=== PATIENT | male | born 1980 | race African-American/Black ===

== ENCOUNTER 2016-07-17 11:20 | Emergency (ER) | payer OTHER ==
[~2016-07-17] VITALS: Ht 170.2 cm; Wt 68.0 kg
[2016-07-17 13:16] VITALS: BP 149/92
[2016-07-17 13:52] LABS: BILIRUBIN,URINE NEGATIVE (NEG); GLUCOSE,URINE NEGATIVE (NEG); NITRITE,URINE NEGATIVE (NEG); PROTEIN,URINE NEGATIVE (NEG-TRACE); UROBILINOGEN,URINE 0.2 mg/dL (0.2 mg/dL)
--- NOTE | 2016-07-17 13:56 | PHYS DOC ---
Past Medical History Past Medical History: No Pertinent History Past Surgical History: Other Additional Past Surgical Histo: RIGHT INGUINAL hernia repair Alcohol Use: Occasionally Drug Use: Marijuana Adult General Chief Complaint Chief Complaint: SEXUALLY TRANSMITTED DISEASE HPI HPI Patient is a 35 year old male presents emergency department stating that his baby padmini was here last night and tested positive for Trichomonas. Patient states he is here to receive treatment. Patient denies any penile drainage. He denies any urinary frequency urgency or pain with urination. He denies any nausea or vomiting. States he sexually active with one partner. Review of Systems Review of Systems Constitutional: Denies fever or chills [] Eyes: Denies change in visual acuity, redness, or eye pain [] HENT: Denies nasal congestion or sore throat [] Respiratory: Denies cough or shortness of breath [] Cardiovascular: No additional information not addressed in HPI [] GI: Denies abdominal pain, nausea, vomiting, bloody stools or diarrhea [] : Denies dysuria or hematuria [] Musculoskeletal: Denies back pain or joint pain [] Integument: Denies rash or skin lesions [] Neurologic: Denies headache, focal weakness or sensory changes [] Current Medications Current Medications Current Medications Medications (Trade) Dose Ordered Sig/Kayla Start Time Stop Time Status Last Admin Dose Admin Azithromycin (Zithromax) 1,000 mg 1X ONCE 07/17/16 14:00 07/17/16 14:01 DC Ceftriaxone Sodium (Rocephin Im) 250 mg 1X ONCE 07/17/16 14:00 07/17/16 14:01 DC Metronidazole (Flagyl) 2,000 mg 1X ONCE 07/17/16 14:00 07/17/16 14:01 DC Allergies Allergies Allergies Coded Allergies Type Severity Reaction Last Updated Verified No Known Drug Allergies 06/07/13 No Physical Exam Physical Exam Constitutional: Well developed, well nourished, no acute distress, non-toxic appearance. [] HENT: Normocephalic, atraumatic, bilateral external ears normal, oropharynx moist, no oral exudates, nose normal. [] Eyes: PERRLA, EOMI, conjunctiva normal, no discharge. [] Neck: Normal range of motion, no tenderness, supple, no stridor. [] Cardiovascular:Heart rate regular rhythm, no murmur [] Lungs & Thorax: Bilateral breath sounds clear to auscultation [] Skin: Warm, dry, no erythema, no rash. [] Back: No tenderness Extremities: No tenderness, no cyanosis, no clubbing, ROM intact, no edema. [] Neurologic: Alert and oriented X 3, normal motor function, normal sensory function, no focal deficits noted. [] Psychologic: Affect normal, judgement normal, mood normal. [] Current Patient Data Vital Signs Vital Signs Date Time Temp Pulse Resp B/P Pulse Ox O2 Delivery O2 Flow Rate FiO2 07/17/16 13:16 98.1 116 18 96 Room Air 98.1 Lab Values Laboratory Tests Test 07/17/16 13:26 Urine Color Yellow Urine Clarity Clear Urine pH 5.0 Urine Specific [place] 1.010 Urine Protein Negativemg/dL (NEG-TRACE) Urine Glucose (UA) Negativemg/dL (NEG) Urine Ketones (Stick) Negativemg/dL (NEG) Urine Blood Negative (NEG) Urine Nitrite Negative (NEG) Urine Bilirubin Negative (NEG) Urine Urobilinogen Dipstick 0.2mg/dL (0.2 mg/dL) Urine Leukocyte Esterase Negative (NEG) Urine RBC 0/HPF (0-2) Urine WBC Occ/HPF (0-4) Urine Squamous Epithelial Cells Occ/LPF Urine Bacteria 0/HPF (0-FEW) Urine Mucus Slight/LPF EKG EKG [] Radiology/Procedures Radiology/Procedures [] Course & Med Decision Making Course & Med Decision Making Pertinent Labs and Imaging studies reviewed. (See chart for details) Urinalysis was negative for urinary tract infection. Patient was treated for sexual transmitted infections with Rocephin, Zithromax and Flagyl. Patient will be discharged home with recommendations to refrain from sexual intercourse for the next 2 weeks. Also instructed patient to make sure that all of his sexual partners have been treated prior to having sexual intercourse with him. Also explained to patient that refrain from sex reason condoms will prevent sexually transmitted infections for being shared. She'll be discharged home in stable condition signs symptoms to return back to emergency department as been provided. [] Dragon Disclaimer Dragon Disclaimer This electronic medical record was generated, in whole or in part, using a voice recognition dictation system. Departure Departure Impression: Primary Impression: Concern about STD in male without diagnosis Disposition: 01 HOME, SELF-CARE Condition: STABLE Referrals: CHARBEL SPAIN MD (PCP) Patient Instructions: Sexually Transmitted Disease, [id number] Additional Instructions: Activity as tolerated. You have been treated for gonorrhea and chlamydia. Your sexual transmitted infection results will be back in approximately 2-3 days. He'll be notified by phone if these are positive. It is advisable that you contact your sexual partners and wants them know that your being treated for that they may seek treatment as well. Avoid sexual intercourse for the next 2 weeks. Review to refrain from sexual intercourse or use condoms to prevent the spread of sexual transmitted infection. Follow-up the primary care physician in the next week. Return back to emergency prior signs symptoms of become worse. Scripts No Active Prescriptions or Reported Meds ANTONIO MOON NP Jul 17, 2016 13:56
[2016-07-17] MEDS ORDERED: AZITHROMYCIN 250 MG TABLET PO ONE (14:00)
[2016-07-17] MEDS ORDERED: METRONIDAZOLE 500 MG TABLET. PO ONE (14:00)
[2016-07-17] MEDS ORDERED: CEFTRIAXONE IM 250 MG VIAL. IM ONE (14:00)
[2016-07-17 14:28] LABS: RBC,URINE 0 /HPF (0-2)
[2016-07-17 14:29] LABS: BACTERIA,URINE 0 /HPF (0-FEW); SQUAMOUS EPITHELIAL CELL,UR OCC /LPF; WBC,URINE OCC /HPF (0-4)
[2016-07-27] MEDS ORDERED: OMEP20CA9 PO (11:05)
== END 2016-07-17 14:50 | disposition home or self-care (01) ==
LOC: ER 11:20
DX: Z11.3 Encounter for screening for infections with a predominantly sexual mode of transmission (principal); F12.10 Cannabis abuse, uncomplicated
CPT/HCPCS: 81001; 87491; 87591; 96372; 99284; J0696; Q0144

== ENCOUNTER → 2016-07-27 | Outpatient (CLI) | payer BC ==
[2016-07-17 13:16] VITALS: BP 149/92
[~2016-07-27] VITALS: Ht 170.2 cm; Wt 68.0 kg
[~2016-07-27] MED LIST: OMEP20CA9 PO; SINCALIDE 1.4 MCG in IV NORMAL SALINE 50ML 30 ML IV ONE
--- NOTE | 2016-07-27 13:05 | RAD ---
EXAM: Nuclear hepatobiliary scan with ejection fraction. HISTORY: Abdominal pain/nausea. TECHNIQUE: Serial static images are obtained of the liver and biliary system in a frontal projection following IV administration of 5.5 mCi of technetium-99m Choletec. After filling of the gallbladder, 1.4 mcg of sincalide were infused over 30 minutes and dynamic imaging continued over this period. The gallbladder ejection fraction was calculated. FINDINGS: There is prompt hepatic clearance of tracer from the blood pool. There is homogeneous distribution throughout the liver. There is normal filling of the gallbladder and normal emptying into the biliary system and small bowel. The gallbladder ejection fraction is 52.4% (normal >35%). IMPRESSION: 1. Normal gallbladder ejection fraction.
== END | disposition home or self-care (01) ==
LOC: NM 10:05
PROVIDERS: ATTEND Internal Medicine Gastroenterology
DX: R10.13 Epigastric pain (principal)
CPT/HCPCS: 78226; 96374; 96375; A9537; J2805

== ENCOUNTER → 2016-08-10 | Day surgery (SDC) | payer BC ==
[~2016-08-10] MED LIST changes: +DICY20TA3 PO; +IV RINGERS,LACTATED 1000ML 1,000 ML IV SCH; +LIDOCAINE 2% PF Vial for OR 5 ML VIAL. ONE; +OMEP40CA5 PO; +PROPOFOL 20 ML IV ONE; -SINCALIDE 1.4 MCG in IV NORMAL SALINE 50ML 30 ML IV ONE
[2016-08-10 13:07] VITALS: BP 130/67
== END | disposition home or self-care (01) ==
LOC: ENDOS 12:02
PROVIDERS: ATTEND Internal Medicine Gastroenterology
DX: K29.50 Unspecified chronic gastritis without bleeding (principal); K21.9 Gastro-esophageal reflux disease without esophagitis; Z83.3 Family history of diabetes mellitus; Z72.89 Other problems related to lifestyle; F17.210 Nicotine dependence, cigarettes, uncomplicated
CPT/HCPCS: 43235; J2704

== ENCOUNTER → 2017-08-14 | Outpatient (CLI) | payer BC | END | disposition home or self-care (01) | LOC: US 09:15 | DX: R10.31 Right lower quadrant pain (principal) | CPT/HCPCS: 76881 ==

== ENCOUNTER 2018-09-27 06:23 | Day surgery (SDC) | payer BC ==
[~2018-09-27] VITALS: Ht 170.2 cm; Wt 71.2 kg
[~2018-09-27 06:23] MED LIST changes: +BUPIVACAINE-EPI 0.25%-1:200000 MPF 30 ML VIAL. ONE; -IV RINGERS,LACTATED 1000ML 1,000 ML IV SCH; -LIDOCAINE 2% PF Vial for OR 5 ML VIAL. ONE; +OMEP20CA10 PO; -OMEP20CA9 PO; -PROPOFOL 20 ML IV ONE
[2018-09-27] MEDS ORDERED: HYDROmorphone 2 MG/ML VIAL IV PRN (07:00)
[2018-09-27] MEDS ORDERED: ONDANSETRON PF 4 MG/2 ML VIAL. IV PRN (07:00)
[2018-09-27] MEDS ORDERED: MORPHINE SULFATE 2 MG/ML VIAL. IV PRN (07:00)
[2018-09-27] MEDS ORDERED: PROCHLORPERAZINE 10 MG/2 ML VIAL. IV PRN (07:00)
[2018-09-27] MEDS ORDERED: fentaNYL PF VIAL 100 MCG/2 ML VIAL IV PRN ×2 (07:00)
[2018-09-27] MEDS ORDERED: IV RINGERS,LACTATED 1000ML 1,000 ML IV SCH (07:00)
[2018-09-27] MEDS ORDERED: PROPOFOL 20 ML IV ONE ×2 (07:25→08:01)
[2018-09-27] MEDS ORDERED: ONDANSETRON PF 4 MG/2 ML VIAL. ONE (07:25)
[2018-09-27] MEDS ORDERED: DEXAMETHASONE SOD PHOS 4 MG/ML VIAL ONE (07:26)
[2018-09-27] MEDS ORDERED: LIDOCAINE 2% PF 5 ML VIAL. ONE (07:27)
[2018-09-27] MEDS ORDERED: MIDAZOLAM HCL/PF 2 MG/2 ML VIAL. ONE (07:28)
[2018-09-27] MEDS ORDERED: fentaNYL PF VIAL 100 MCG/2 ML VIAL ONE (07:28)
--- NOTE | 2018-09-27 08:15 | PDOC4 ---
Operative Note Operative Note Date: 09/27/2018 Preoperative diagnosis: Right groin lymphadenopathy Postoperative diagnosis: Same Procedure: Excisional biopsy lymph nodes right groin Surgeon: Alfredito Specimen: 2 large lymph nodes from right groin Dictation: Patient is a 37-year-old male who's had pain in the right groin ultrasound showing enlarged lymph nodes these did not resolve with time procedure of excisional biopsy was explained to the patient detail risk benefits were also discussed including bleeding infection alternatives to this procedure also discussed with the patient who seemed to understand and gave both verbal and written consent to have the procedure performed. Patient was taken to the operating room placed in supine position general anesthesia was initiated once patient was sleep and intubated his right groin was prepped and draped usual sterile fashion using ChloraPrep and area over the groin was injected with quarter percent Marcaine with epinephrine incision was made with 15 blade scalpel was carried down through the subcutaneous tissues that provide hemostasis to the external fascia the node to be felt just beneath external fascia this was opened and the lymph nodes were excised 2 and sent for pathology fresh. Wound was then closed in 2 layers a deep layer running 3-0 Vicryl and the skin was reapproximated for septic and a Monocryl Mastisol Steri- Strips and island dressings were applied. Patient was awakened from and asked bated operating room taken to recovery in stable condition all sponge instrument needle counts listed as correct estimated blood loss 5 mL. REINA BILL MD September 27, 2018 08:15
--- NOTE | 2018-09-27 08:17 | DISCH ---
DISCHARGE INSTRUCTIONS Condition on Discharge Condition on Discharge: Stable Activity After Discharge Activity Instructions for Disc: Activity as tolerated Diet after Discharge Diet after Discharge: Regular Wound Incision Care Other wound/incision instructi: Debra shower in 24 hours Contacting the DRVitaly after DC Call your doctor for: If your condition worsens Follow-Up Follow up with: Dr. Bill in 2 weeks REINA BILL MD September 27, 2018 08:17
[2018-09-27] MEDS ORDERED: IBUP-1007 PO (08:46)
[2018-09-27] MEDS ORDERED: IBUPROFEN 200 MG TABLET. PO ONE (09:15)
[2018-09-27 09:25] VITALS: BP 116/76
--- NOTE | 2018-10-02 15:06 | PATHOLOGY ---
[facility] Accession Number: [id number] . 01 Material submitted: . PART A: lymph node - RIGHT GROIN LYMPH NODE. Modifiers: right, inguinal PART B: lymph node - RIGHT GROIN LYMPH NODE - FS. Modifiers: right, inguinal . 01 Clinical history: . Inguinal lymphadenopathy; right groin lymph node biopsy . 01 Frozen section diagnosis: . FROZEN SECTION DIAGNOSIS: . B. Right groin lymph node: - Atypical lymphoid cells present - deferred to permanent sections and flow cytometry studies. . The findings in this case were discussed with Dr. Glaser at the time of the procedure. (SKM:jovanni; 09/27/2018) . Frozen section performed at [facility], [address] [place] [address], [place] [address]. . . FROZEN SECTION GROSS DESCRIPTION: . Part A is received fresh and it is labeled, "right groin lymph node", and it consists of a 1.2 x 0.7 x 0.7 cm piece of adipose tissue which contains a single lymph node measuring approximately 0.7 cm in greatest dimension. The specimen is bisected and all submitted in A. . Part B is received fresh and it is labeled, "right groin lymph node", and it consists of a 3 x 1.5 x 1.5 cm piece of fibroadipose tissue which contains approximately seven lymph nodes. The largest lymph node measures approximately 0.9 cm in greatest dimension. This largest lymph node is bisected. One of the bisected halves is submitted for frozen section on block B1. The other half of this lymph node is finely minced and submitted in RPMI for flow cytometry studies. (SKM:jovanni; 09/27/2018) /QMS . 02 Diagnosis: A. Lymph node, right groin: - Reactive lymphoid hyperplasia, mixed pattern. . B. Lymph nodes, right groin lymph nodes: - Reactive lymphoid hyperplasia, mixed pattern. . (JHON:alberto; 10/01/2018) WILLARD/10/01/2018 . 02 Comment: Sections of the right groin lymph nodes appear similar. The overall lymph node architecture appears preserved. There are lymphoid follicles present within the cortex which contain reactive germinal centers. There are areas of paracortical expansion. The paracortex is comprised predominantly of small lymphocytes. There are focal yellow-brown pigmented macrophages within the paracortex, a feature which may be seen in dermatopathic lymphadenitis. There is mild sinus histiocytosis. There are no granulomas present. There are cells foreign to the lymph node. . A portion of one of the right groin lymph nodes is submitted for lymphocyte marker studies by flow cytometry. The specimen has a viability of 99.5%. Lymphocytes comprise 99.5% of total cells. T-cells comprise 77% of lymphoid cells and show a CD4/CD8 ratio of 10.9. Mature B-cells comprise 22% of lymphoid cells and are polyclonal with a kappa:lambda ratio of 1.3. . The morphologic and immunophenotypic findings are supportive of the diagnosis of reactive lymphoid hyperplasia, mixed pattern. The case is also examined by Dr. العلي, hematopathologist, who concurs with the diagnosis. . (JPM:alberto; 10/01/2018) . 02 Electronically signed: . William Daigle MD, Pathologist NPI- [id number] . 01 Gross description: . Please see Frozen Section Gross Description and Final Diagnosis dictated by the pathologist under the Frozen Section portion of this case. [facility]/S . 02 Microscopic: . . . 02 Pathologist provided ICD-10: R59.0 . 02 CPT . 021873, [id number], [id number] Specimen Comment: A courtesy copy of this report has been sent to Specimen Comment: [phone]. Specimen Comment: Report sent to DR SPAIN Performed at: 01 [facility] [address] [facility] [address], [place] [id number] MD Shamir Pratt MD Phone: [phone] Performed at: 02 [facility] [address] [place], [place] [id number] MD William Daigle MD Phone: [phone]
== END 2018-09-27 09:47 | disposition home or self-care (01) ==
LOC: SURG 06:23
PROVIDERS: ATTEND Surgery
DX: R59.0 Localized enlarged lymph nodes (principal); Z88.6 Allergy status to analgesic agent; Z79.899 Other long term (current) drug therapy; F10.20 Alcohol dependence, uncomplicated; Z98.890 Other specified postprocedural states; Z82.49 Family history of ischemic heart disease and other diseases of the circulatory system; F17.210 Nicotine dependence, cigarettes, uncomplicated; Z72.89 Other problems related to lifestyle
CPT/HCPCS: 38500; 88184; 88185; 88309; 88331; A7015; J0696; J1100; J2001; J2250; J2405; J2704; J3010; J7120

== ENCOUNTER → 2018-12-31 | Outpatient (CLI) | payer BC ==
[~2018-12-31] MED LIST changes: -BUPIVACAINE-EPI 0.25%-1:200000 MPF 30 ML VIAL. ONE; +IBUP-1007 PO
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
== END | disposition home or self-care (01) ==
LOC: KCIC 14:37
PROVIDERS: ATTEND Physician Assistant Medical
DX: S32.028A Other fracture of second lumbar vertebra, initial encounter for closed fracture (principal); M47.812 Spondylosis without myelopathy or radiculopathy, cervical region; M48.02 Spinal stenosis, cervical region; M62.838 Other muscle spasm; M41.83 Other forms of scoliosis, cervicothoracic region; M46.02 Spinal enthesopathy, cervical region; V89.2XXA Person injured in unspecified motor-vehicle accident, traffic, initial encounter; Y93.89 Activity, other specified; Y92.89 Other specified places as the place of occurrence of the external cause; Y99.8 Other external cause status
CPT/HCPCS: 72050; 72110

== ENCOUNTER → 2019-01-09 | Outpatient (CLI) | payer BC ==
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
== END | disposition home or self-care (01) ==
LOC: KCIC MRI 08:29
PROVIDERS: ATTEND Specialist
DX: S32.038A Other fracture of third lumbar vertebra, initial encounter for closed fracture (principal); M47.817 Spondylosis without myelopathy or radiculopathy, lumbosacral region; M51.27 Other intervertebral disc displacement, lumbosacral region; M48.07 Spinal stenosis, lumbosacral region; M43.8X6 Other specified deforming dorsopathies, lumbar region; V89.2XXA Person injured in unspecified motor-vehicle accident, traffic, initial encounter; Y93.89 Activity, other specified; Y92.89 Other specified places as the place of occurrence of the external cause; Y99.8 Other external cause status
CPT/HCPCS: 72148

== ENCOUNTER → 2019-03-07 | Outpatient (CLI) | payer BC ==
[~2019-03-07] MED LIST changes: +CYCL10TA2 PO; +IOHEXOL 180 MG/ML 10 ML VIAL. ONE; +OMEP40CA45 PO; -OMEP40CA5 PO; +methylPREDNISolone ACETATE 40 MG/ML VIAL. ONE; +methylPREDNISolone ACETATE 80 MG/ML VIAL. ONE
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
== END ==
LOC: PNCL 09:27
PROVIDERS: ATTEND Anesthesiology
DX: M51.16 Intervertebral disc disorders with radiculopathy, lumbar region (principal); F17.210 Nicotine dependence, cigarettes, uncomplicated; Z88.8 Allergy status to other drugs, medicaments and biological substances; Z72.89 Other problems related to lifestyle
CPT/HCPCS: 62323; J1030; J1040; Q9965